=== PATIENT | female | born 1945 | race Caucasian/White ===

== ENCOUNTER 2018-10-28 07:34 | Day surgery (SDC) | payer BC ==
[~2018-10-28] VITALS: Ht 167.6 cm; Wt 84.0 kg
[2018-10-28] MEDS ORDERED: IODIXANOL 320MG/ML 100ML BTL IV ONE (10:04)
[2018-10-28] MEDS ORDERED: LIDOCAINE 2%HCL (LOCAL ANESTH.) INJ 20ML MDV ONE (10:04)
[2018-10-28] MEDS ORDERED: fentaNYL CITRATE 100 MCG/2 ML VL ONE (10:12)
[2018-10-28] MEDS ORDERED: MIDAZOLAM HCL 1MG/1ML-2 ML VIAL ONE (10:13)
[2018-10-28] MEDS ORDERED: NITROGLYCERIN 5MG/ML 10ML VIAL IV ONE (10:13)
[2018-10-28] MEDS ORDERED: HEPARIN SODIUM (PORCINE) 5000 UNITS/ML 1ML VIAL ONE (10:14)
[2018-10-28] MEDS ORDERED: VERAPAMIL 2.5MG/ML INJ 2ML VIAL IV ONE (10:15)
== END 2018-10-28 13:25 | disposition home or self-care (01) ==
LOC: CATH 07:34
PROVIDERS: ATTEND Internal Medicine Cardiovascular Disease
DX: I25.10 Atherosclerotic heart disease of native coronary artery without angina pectoris (principal); I11.9 Hypertensive heart disease without heart failure; Z88.0 Allergy status to penicillin; Z88.8 Allergy status to other drugs, medicaments and biological substances; E78.5 Hyperlipidemia, unspecified; Z79.82 Long term (current) use of aspirin; Z79.899 Other long term (current) drug therapy; G47.30 Sleep apnea, unspecified; Z91.018 Allergy to other foods
CPT/HCPCS: 93005; 93458; C1769; C1887; C1894; J1644; J2250; J3010; J7030; Q9967; 99152; 99153; J3490